=== PATIENT | female | born 1930 | race Caucasian/White ===

== ENCOUNTER 2016-12-24 13:18 | Emergency (ER) | payer MEDICARE, BC ==
[~2016-12-24 13:18] MED LIST: BAYE81TA PO; CENTTAB9 PO; SIMV20 PO; VITA200017 PO; VITA500S3 SL; ZOLP5TAB3 PO; [UNRECOGNIZED DRUG - CODE] PO
[2016-12-24 13:43] VITALS: BP 180/76; PULSE 64; RESP 20; TEMP 98.7; O2SAT 98
[2016-12-24 13:48] LABS: BLOOD, URINE NEG (NEG); GLUCOSE,URINE NEG (NEG); KETONE, URINE NEG (NEG); NITRITE,URINE NEG (NEG); PH, URINE 7.5 (5.0-8.5)
[2016-12-24 13:57] LABS: METHOD OF COLLECTION CLEAN CATCH; URINE COLOR YELLOW (YELLW/STRAW)
[2016-12-24 13:58] LABS: COMMENT (UR) CULT NOT INDICATED; CULTURE IF INDICATED CULT NOT INDICATED; SQUAMOUS EPITHELIAL CELL URINE 0-5 /hpf (0-5)
--- NOTE | 2016-12-24 14:38 | PD ---
HPI Chief Complaint: Complaint Time Seen by Provider: 13:45 Travel History International Travel<30 days: No Contact w/Intl Traveler<30days: No Traveled to known affect area: No History of Present Illness HPI 86-year-old female presents to the emergency room for evaluation of urinary frequency, bilateral low back pain, and feeling unwell. Patient states she has had history of urinary frequency for the past several months. States she has chronic, constant low back pain that was the worst that it has been last night. Pain kept her from being able to sleep. She is going out of town on Saturday and wanted to be evaluated for urinary tract infection. Patient states she can tell when she is getting a urinary tract infection because she becomes constipated. States constipation symptoms occurred 1 week ago but has resolved since increasing Metamucil and water intake. Reports associated chills and feeling unwell upon waking this morning. Patient denies nausea, vomiting, dysuria, urgency, hematuria. She has been seeing her primary care physician for urinary frequency but has never been prescribed antibiotics. She does not have a urologist. PFSH Past Medical History Cancer: No Cardiovascular Problems: Yes (LEAKY VALVES, IRREGULAR HT RATES IN THE PAST) High Cholesterol: Yes Diabetes: No Diminished Hearing: No Endocrine: No Gastrointestinal Disorders: Yes (GERD) Hepatitis: No Hiatal Hernia: No Immune Disorder: No Musculoskeletal: Yes (BACK AND NECK PAIN, ARTHRITIS) Respiratory: Yes (ASTHMA, COPD) Immunizations Current: Yes Thyroid Disease: No Tetanus Vaccination: > 5 Years Influenza Vaccination: Yes Tubal Ligation: Yes Past Surgical History Abdominal Surgery: Yes (APPY) AICD: No Appendectomy: Yes Cholecystectomy: Yes Eye Surgery: Yes (BILAT. CATARACTS) Gynecologic Surgery: Yes (TUBAL LIGATION) Joint Replacement: No Pacemaker: No Tonsillectomy: Yes Other Surgery: Yes (LEFT KNEE LIGAMENT SURGERY) Social History Alcohol Use: Yes (GLASS OF WINE ONCE A DAY) Tobacco Use: No Substance Use: No Allergies-Medications (Allergen,Severity, Reaction): Coded Allergies: Sulfa (Verified Allergy, Mild, 06/07/15) Reported Meds & Prescriptions Reported Meds & Active Scripts Active Flagyl (Metronidazole) 500 Mg Tab 500 Mg PO TID 7 Days Cipro (Ciprofloxacin HCl) 500 Mg Tab 500 Mg PO BID 7 Days Reported Zolpidem (Zolpidem Tartrate) 5 Mg Tab 5 Mg PO HS PRN Centrum (Multivitamins) Tab 1 Tab PO DAILY Vitamin B-12 (Cyanocobalamin) 500 Mcg Sub 500 Mcg SL DAILY Pricila Aspirin EC Low Dose (Aspirin) 81 Mg Tab 1 Tab PO Optic-Vites (Multiple Vitamins W/ Minerals) Tab 1 Tab PO DAILY Vitamin D3 Super Strength (Cholecalciferol) 2,000 Unit Tab 2,000 Unit PO DAILY Zocor (Simvastatin) 20 Mg Tab 20 Mg PO HS Review of Systems Except as stated in HPI: all other systems reviewed are Neg Physical Exam Narrative GENERAL: Well-nourished, well-developed female in no acute distress. Afebrile. Ambulatory. SKIN: Focused skin assessment warm/dry. HEAD: Normocephalic. EYES: No scleral icterus. No injection or drainage. NECK: Supple, trachea midline. No JVD or lymphadenopathy. CARDIOVASCULAR: Regular rate and rhythm without murmurs, gallops, or rubs. RESPIRATORY: Breath sounds equal bilaterally. No accessory muscle use. GASTROINTESTINAL: Abdomen soft, non-tender, nondistended. No guarding. BACK: Nontender without obvious deformity. No CVA tenderness. Tenderness to palpation of the right paraspinous, lumbar musculature. Data Data Last Documented VS Vital Signs Date Time Temp Pulse Resp B/P Pulse Ox O2 Delivery O2 Flow Rate FiO2 12/24/16 17:49 78 16 162/76 98 Room Air 12/24/16 13:43 98.7 Orders Urinalysis - C+S If Indicated (12/24/16 13:21) Complete Blood Count With Diff (12/24/16 14:34) Comprehensive Metabolic Panel (12/24/16 14:34) Lipase (12/24/16 14:34) Ct Abd/Pel W Iv Contrast(Rout) (12/24/16 14:34) Iv Access Insert/Monitor (12/24/16 14:34) Ecg Monitoring (12/24/16 14:34) Oximetry (12/24/16 14:34) Sodium Chloride 0.9% Flush (Ns Flush) (12/24/16 14:45) Iohexol 350 Inj (Omnipaque 350 Inj) (12/24/16 15:58) Clonidine (Catapres) (12/24/16 17:00) Labs Laboratory Tests Test 12/24/16 12/24/16 13:40 15:00 Urine Collection Type CLEAN CATCH Urine Color YELLOW Urine Turbidity CLEAR Urine pH 7.5 Urine Specific [place] 1.011 Urine Protein NEG mg/dL Urine Glucose (UA) NEG mg/dL Urine Ketones NEG mg/dL Urine Occult Blood NEG Urine Nitrite NEG Urine Bilirubin NEG Urine Leukocyte Esterase NEG Urine Squamous Epithelial 0-5 /hpf Cells Urine Amorphous Sediment FEW Microscopic Urinalysis Comment CULT NOT INDICATED Urine Collection Time 1440 White Blood Count 6.0 TH/MM3 Red Blood Count 4.55 MIL/MM3 Hemoglobin 13.7 GM/DL Hematocrit 41.3 % Mean Corpuscular Volume 90.7 FL Mean Corpuscular Hemoglobin 30.2 PG Mean Corpuscular Hemoglobin 33.2 % Concent Red Cell Distribution Width 13.0 % Platelet Count 211 TH/MM3 Mean Platelet Volume 8.3 FL Neutrophils (%) (Auto) 59.9 % Lymphocytes (%) (Auto) 28.0 % Monocytes (%) (Auto) 9.4 % Eosinophils (%) (Auto) 1.9 % Basophils (%) (Auto) 0.8 % Neutrophils # (Auto) 3.6 TH/MM3 Lymphocytes # (Auto) 1.7 TH/MM3 Monocytes # (Auto) 0.6 TH/MM3 Eosinophils # (Auto) 0.1 TH/MM3 Basophils # (Auto) 0.0 TH/MM3 CBC Comment DIFF FINAL Differential Comment Sodium Level 140 MEQ/L Potassium Level 4.2 MEQ/L Chloride Level 104 MEQ/L Carbon Dioxide Level 27.4 MEQ/L Anion Gap 9 MEQ/L Blood Urea Nitrogen 15 MG/DL Creatinine 1.10 MG/DL Estimat Glomerular Filtration 47 ML/MIN Rate Random Glucose 99 MG/DL Calcium Level 9.6 MG/DL Total Bilirubin 0.4 MG/DL Aspartate Amino Transf 25 U/L (AST/SGOT) Alanine Aminotransferase 24 U/L (ALT/SGPT) Alkaline Phosphatase 83 U/L Total Protein 7.2 GM/DL Albumin 3.8 GM/DL Lipase 158 U/L [facility] Medical Decision Making Medical Screen Exam Complete: Yes Emergency Medical Condition: Yes Medical Record Reviewed: Yes Differential Diagnosis Low back pain, pyelonephritis, UTI, kidney stones, muscle strain, degenerative disc disease Narrative Course 86-year-old female presents to the emergency room for evaluation of bilateral low back pain and urinary frequency. Patient reports frequency has been ongoing for several months and back pain reached its most significant point last night. Patient is well-appearing in the emergency room. She is ambulatory. Vital signs stable. No focal neurological deficits. No midline tenderness. UA shows no evidence of urinary tract infection. Given patient's acute onset of pain, workup was initiated. CBC is completely unremarkable. CMP only remarkable for elevated creatinine of 1.1. Lipase negative. CT shows possibility of mild acute diverticulitis as well as musculoskeletal changes. Patient given copy of her CT report. She is tolerating diet well. Denies fever , chills, nausea, vomiting. No evidence of sepsis. No indication for admission at this time. She was discharged with prescriptions for Flagyl and Cipro. Patient was offered pain medication but declined. I spoke to my attending physician, Dr. Holloway, who agrees with plan. Told to follow up with her primary care physician and return for worsening symptoms. She understands and agrees to plan. Diagnosis Primary Impression: Diverticulitis Qualified Code: K57.32 - Diverticulitis of large intestine without perforation or abscess without bleeding Additional Impression: Low back pain Qualified Code: M54.5 - Acute bilateral low back pain without sciatica Referrals: Primary Care Physician Patient Instructions: Diverticulitis (ED), General Instructions Additional Instructions: Rest and drink plenty of fluids. Take Cipro as directed, until gone. This medication may make tendons rupture, do not lift heavy objects while taking it. Take Flagyl as directed, until gone. Take Tylenol as directed, as needed for pain. Follow-up with a primary care physician. Return to the emergency room for worsening symptoms. Med/Other Pt SpecificInfo: Prescription(s) given Scripts Metronidazole (Flagyl)500 Mg [id number] Mg PO TID 7 Days Ref 0 Prov:Sd Holloway MD 12/24/16 Ciprofloxacin (Cipro)500 Mg [id number] Mg PO BID 7 Days Ref 0 Prov:Sd Holloway MD 12/24/16 Denisa Millan Dec 24, 2016 14:38
[2016-12-24] MEDS ORDERED: SODIUM CHLORIDE 0.9% FLUSH 10 ML FLUSH IV FLUSH PRN (14:45)
[2016-12-24 15:08] LABS: AUTOMATED NEUTROPHIL # 3.6 TH/MM3 (1.8-7.7); BASOPHIL % 0.8 % (0.0-2.0); EOSINOPHIL # 0.1 TH/MM3 (0-0.4); EOSINOPHIL % 1.9 % (0.0-4.0); HEMATOCRIT 41.3 % (35.0-46.0); HEMO FLAGS DIFF FINAL; LYMPHOCYTE # 1.7 TH/MM3 (1.0-4.8); MEAN CELL VOLUME 90.7 FL (80.0-100.0); MEAN CORPUSCULAR HEMOGLOBIN 30.2 PG (27.0-34.0); MEAN CORPUSCULAR HGB CONC 33.2 % (32.0-36.0); MONO % 9.4 % (0.0-8.0); NEUT % 59.9 % (16.0-70.0); PLATELET COUNT 211 TH/MM3 (150-450); RED BLOOD COUNT 4.55 MIL/MM3 (4.00-5.30)
[2016-12-24 15:15] VITALS: BP 184/72; PULSE 68; RESP 16; O2SAT 98
[2016-12-24 15:16] LABS: CHLORIDE 104 MEQ/L (98-107); POTASSIUM 4.2 MEQ/L (3.5-5.1); SODIUM (NA) 140 MEQ/L (136-145)
[2016-12-24 15:20] LABS: ANION GAP 9 MEQ/L (5-15); BICARBONATE 27.4 MEQ/L (21.0-32.0); BLOOD UREA NITROGEN 15 MG/DL (7-18)
[2016-12-24 15:23] LABS: ALT (GPT) 24 U/L (10-53); AST (GOT) 25 U/L (15-37); GLOMERULAR FILTRATION RATE 47 ML/MIN (>89)
[2016-12-24 15:24] LABS: TOTAL BILIRUBIN ADULT 0.4 MG/DL (0.2-1.0)
[2016-12-24 15:25] LABS: ALKALINE PHOSPHATASE 83 U/L (45-117)
[2016-12-24] MEDS ORDERED: IOHEXOL 350 MG/ML 10 ML VIAL (for RAD DIAG) IV ONE (15:58)
--- NOTE | 2016-12-24 16:19 | RADRPT ---
EXAM DATE/TIME: 12/24/2016 15:44 [facility] COMPARISON: No previous studies available for comparison. INDICATIONS : Bilateral flank pain with urinary frequency and burning. IV CONTRAST: 70 cc Omnipaque 350 (iohexol) IV ORAL CONTRAST: No oral contrast ingested. RADIATION DOSE: 7.69 CTDIvol (mGy) MEDICAL HISTORY : Gastroesophageal reflux disease. SURGICAL HISTORY : Appendectomy. Cholecystectomy.Tubal ligation. ENCOUNTER: Initial ACUITY: 1 day PAIN SCALE: 3/10 LOCATION: Bilateral flank TECHNIQUE: Volumetric scanning of the abdomen and pelvis was performed. Using automated exposure control and ad justment of the mA and/or kV according to patient size, radiation dose was kept as low as reasonably achievable to obtain optimal diagnostic quality images. DICOM format image data is available electro nically for review and comparison. FINDINGS: LOWER LUNGS: The visualized lower lungs are clear. LIVER: There is an 8 mm low-density lesion within the right lobe of the liver consistent with probable cyst. No solid lesion is identified. There is no dilation of the biliary tree. No calcified gallstones. SPLEEN: Normal size without lesion. PANCREAS: Within normal limits. KIDNEYS: There is a 9 mm simple cyst within the midpole the right kidney. Upper pole cortical thinning is note d on the right. There is no solid mass, stone or hydronephrosis. ADRENAL GLANDS: Within normal limits. VASCULAR: There is no aortic aneurysm. BOWEL/MESENTERY: Extensive diverticular disease is noted throughout the colon. There is mild bowel wall thickening inv olving the sigmoid colon raising the possibility of very mild acute diverticulitis. No significant pe ricolic inflammatory changes or abscess collection is noted. ABDOMINAL WALL: Within normal limits. RETROPERITONEUM: There is no lymphadenopathy. Retroaortic left renal vein is noted. BLADDER: No wall thickening or mass. REPRODUCTIVE: Within normal limits. INGUINAL: There is no lymphadenopathy or hernia. MUSCULOSKELETAL: Degenerative changes and scoliosis of the thoraco-lumbar spine are noted. CONCLUSION: 1. Focal wall thickening involving the sigmoid colon raising the possibility of mild acute diverticul itis. Clinical correlation is recommended. 2. Degenerative changes and scoliosis of the thoracolumbar spine. 3. Tiny hepatic and right renal cysts. 4. Right upper pole renal cortical thinning. Lalo Patel MD on December 24, 2016 at 16:09 Board Certified Radiologist. This report was verified electronically.
[2016-12-24] MEDS ORDERED: CIPR-9 PO (16:32)
[2016-12-24] MEDS ORDERED: METR-1 PO (16:32)
[2016-12-24 16:41] VITALS: BP 188/71; PULSE 68; RESP 16; O2SAT 98
[2016-12-24] MEDS ORDERED: cloNIDine HCL 0.1 MG TAB PO ONE (17:00)
[2016-12-24 17:49] VITALS: BP 162/76; PULSE 78; RESP 16; O2SAT 98
== END 2016-12-24 17:51 | disposition home or self-care (01) ==
LOC: PHEFT 13:18 → PHED 17:51
DX: K57.32 Diverticulitis of large intestine without perforation or abscess without bleeding (principal); M54.5 Low back pain
CPT/HCPCS: 74177; 80053; 81001; 83690; 85025; 99285; Q9967

== ENCOUNTER → 2017-03-20 | Outpatient (CLI) | payer MEDICARE, BC ==
[~2017-03-20] MED LIST changes: +CIPR-9 PO; +METR-1 PO
== END ==
LOC: PLAB 15:07
PROVIDERS: ATTEND Internal Medicine Interventional Cardiology
DX: R60.0 Localized edema (principal); I11.9 Hypertensive heart disease without heart failure; R07.89 Other chest pain; R94.31 Abnormal electrocardiogram [ECG] [EKG]
CPT/HCPCS: 36415; 85379

== ENCOUNTER → 2017-05-21 | Outpatient (CLI) | payer MEDICARE, BC ==
[2017-05-21 13:32] LABS: AUTOMATED NEUTROPHIL # 3.2 TH/MM3 (1.8-7.7); BASOPHIL % 0.7 % (0.0-2.0); EOSINOPHIL # 0.2 TH/MM3 (0-0.4); EOSINOPHIL % 3.3 % (0.0-4.0); HEMATOCRIT 41.9 % (35.0-46.0); HEMO FLAGS DIFF FINAL; LYMPH % 29.9 % (9.0-44.0); LYMPHOCYTE # 1.7 TH/MM3 (1.0-4.8); MEAN CELL VOLUME 91.8 FL (80.0-100.0); MEAN CORPUSCULAR HEMOGLOBIN 30.9 PG (27.0-34.0); MEAN CORPUSCULAR HGB CONC 33.7 % (32.0-36.0); MONO % 10.4 % (0.0-8.0); NEUT % 55.7 % (16.0-70.0); PLATELET COUNT 206 TH/MM3 (150-450); RED BLOOD COUNT 4.56 MIL/MM3 (4.00-5.30); WHITE BLOOD COUNT 5.7 TH/MM3 (4.0-11.0)
[2017-05-21 13:44] LABS: ALT (GPT) 23 U/L (10-53); ANION GAP 4 MEQ/L (5-15); AST (GOT) 23 U/L (15-37); BICARBONATE 30.7 MEQ/L (21.0-32.0); BLOOD UREA NITROGEN 18 MG/DL (7-18); CHLORIDE 105 MEQ/L (98-107); GLOMERULAR FILTRATION RATE 45 ML/MIN (>89); GLUCOSE,FASTING 92 MG/DL (74-99); POTASSIUM 4.5 MEQ/L (3.5-5.1); SODIUM (NA) 140 MEQ/L (136-145)
[2017-05-21 13:47] LABS: ALKALINE PHOSPHATASE 83 U/L (45-117); HDL CHOLESTEROL 101.2 MG/DL (40.0-60.0); LDL CHOLESTEROL 76 MG/DL (0-99); TOTAL BILIRUBIN ADULT 0.6 MG/DL (0.2-1.0)
== END ==
LOC: PLAB 08:31
DX: G47.00 Insomnia, unspecified (principal); E78.5 Hyperlipidemia, unspecified
CPT/HCPCS: 36415; 80053; 80061; 85025